=== PATIENT | male | born 1950 | race Caucasian/White ===

== ENCOUNTER 2017-06-11 12:16 | Emergency (ER) | payer MEDICARE ==
[2017-06-11] MEDS ORDERED: SODIUM CHLORIDE 0.9% IV ONE (12:39)
[2017-06-11] MEDS ORDERED: PHYTONADIONE IV ONE (12:39)
[2017-06-11] MEDS ORDERED: PHYTONADIONE 10 MG/ML SOL ONE (12:42)
[2017-06-11 12:53] LABS: ALBUMIN 2.8 gm/dl (3.4-5.0)
[2017-06-11 12:56] VITALS: TEMP 98
[2017-06-11] MEDS ORDERED: PHYTONADIONE 5 MG PO ONE (13:15)
[2017-06-11] MEDS ORDERED: LIDOCAINE HCL 2% (VISCOUS) 20 ML SOL ONE (13:59)
[2017-06-11] MEDS ORDERED: ALUMINUM/MAGNESIUM 30 ML SUS ONE (13:59)
[2017-06-11] MEDS ORDERED: SODIUM CHLORIDE 0.9% 500 ML 500 ML IV ONE (14:39)
[2017-06-11 14:49] VITALS: RESP 24
[2017-06-11 16:23] VITALS: BP 161/104; PULSE 67; O2SAT 96
== END 2017-06-11 16:43 | disposition short-term general hospital (02) | DRG 446 ==
LOC: ED 12:16
DX: K83.1 Obstruction of bile duct (principal); R04.0 Epistaxis; Z79.01 Long term (current) use of anticoagulants
CPT/HCPCS: 74178; 80076; 99285; J3430; Q9967

== ENCOUNTER 2017-06-18 12:16 | Emergency (ER) | payer MEDICARE ==
[2017-06-18 12:36] LABS: BASOPHILS % (AUTO) 0 % (0-3); EOSINOPHILS % (AUTO) 3 % (0-9); HEMATOCRIT 45 % (39-53); MEAN CORPUSCULAR HGB CONC 32.8 gm/dl (32.0-36.0); MEAN CORPUSCULAR VOLUME 84 fL (80-100); MONOCYTES % (AUTO) 9.3 % (0-12); NEUTROPHILS % (AUTO) 76.5 % (37-80)
[2017-06-18 12:58] LABS: ALBUMIN 2.4 gm/dl (3.4-5.0); CALCIUM 9.1 mg/dl (8.5-10.1); POTASSIUM 3.3 mMol/L (3.5-5.1)
[2017-06-18 13:00] VITALS: RESP 18; TEMP 98.1
[2017-06-18] MEDS ORDERED: ONDANSETRON 4 MG ODT BU ONE (13:23)
[2017-06-18] MEDS ORDERED: ONDANSETRON 4 MG ODT ONE (13:23)
[2017-06-18] MEDS ORDERED: OXYCODONE HYDROCHLORIDE 5 MG TAB PO PRN (16:21)
[2017-06-18] MEDS ORDERED: OXYCODONE HYDROCHLORIDE 5 MG TAB ONE (16:24)
[2017-06-18] MEDS ORDERED: ENOXAPARIN 40 MG SOL SC SCH (16:45)
[2017-06-18] MEDS ORDERED: ENOXAPARIN 40 MG SOL SC ONE (16:51)
[2017-06-18 17:23] VITALS: BP 129/82; PULSE 66; O2SAT 92
== END 2017-06-18 17:18 | disposition home or self-care (01) | DRG 442 ==
LOC: ED 12:16
DX: R16.0 Hepatomegaly, not elsewhere classified (principal); R17 Unspecified jaundice; R11.0 Nausea; R14.0 Abdominal distension (gaseous); R74.0 Nonspecific elevation of levels of transaminase and lactic acid dehydrogenase [LDH]; R15.9 Full incontinence of feces
CPT/HCPCS: 36415; 80053; 85025; 85610; 99285; J1650